=== PATIENT | male | born 1970 | race African-American/Black ===

== ENCOUNTER 2019-09-20 09:19 | Emergency (ER) | payer OTHER, SELFPAY ==
[2019-09-20 09:25] VITALS: BP 155/95; PULSE 89; RESP 16; TEMP 36.7; O2SAT 98
--- NOTE | 2019-09-20 09:45 | ED.ABDPAIN ---
HPI - Abdominal Pain General Chief Complaint: Abdominal Pain Stated Complaint: abd pain Time Seen by Provider: 09/20/19 09:24 Source: patient Mode of arrival: ambulatory Limitations: no limitations History of Present Illness HPI narrative: This patient is a 49 year old Male who presents for evaluation of left lower abdominal pain and constipation. PAtient states he has had issues for several month. He reports left lower abdominal pain constantly for several months and he reports today his pain is severe cramping. He also states he has having issues having bowel movements. He has been taking multiple doses of dulcolax and he is not have regular bowel movements. His last amy movement was last night. He denies nausea, vomiting, blood stools or fever. MD elicited complaint: abdominal pain Onset (ago): month(s) Pain Consistency: constant Related Data Home Medications Medication Instructions Recorded Confirmed Humalog U-100 Insulin 15 units ACHS 09/20/19 09/20/19 Allergies Allergy/AdvReac Type Severity Reaction Status Date / Time No Known Allergies Allergy Unverified 09/20/19 15:52 Review of Systems Review of Systems: All systems reviewed & are unremarkable except as noted in HPI and below Constitutional: Constitutional: Denies chills and Denies fever(s) Respiratory: Respiratory: Denies dyspnea Gastrointestinal: Gastrointestinal: Reports abdominal pain, Reports constipation, Denies nausea and Denies vomiting Genitourinary: Genitourinary: Denies hematuria, Denies oliguria, Denies dysuria and Denies urinary frequency PMFSH Past Medical History Medical History (Updated 09/20/19 @ 17:43 by Jayshree Terry MD) History of gastrostomy tube placement Surgical History Surgical History (Updated 09/20/19 @ 09:46 by Jayshree Terry MD) History of open reduction and internal fixation (ORIF) procedure Social History Social History (System 08/10/19 @ 09:38 by Daksha Park) Gender identity (if verbalized by the patient): Male Exam Narrative: Exam Narrative: GENERAL: Well-appearing, well-nourished, and in no acute distress. HEAD: Normocephalic, atraumatic EYES: PERRLA and EOMI, conjunctiva clear without discharge RESPIRATORY: No respiratory distress, Airway patent, Respirations non-labored, Clear to auscultation without rales, rhonchi or wheeze HEART: Regular rate and rhythm. No murmur heard. Normal peripheral pulses. ABDOMEN: Soft, nontender, distended, normal active bowel sounds. No masses. No rebound or guarding, No organomegaly. no fecal impaction EXTREMITIES: No edema, normal strength with full range of motion. SKIN: Warm, dry, normal color without rash NEURO: Alert and oriented x3. CN 2-12 grossly intact. No focal deficits. PSYCH: Normal mood and affect. Course Reevaluation(s) Reevaluation #1: This patient left AMA before evaluation was completed. Date: 09/20/19 Time: 11:30 Vital Signs Vital signs: Vital Signs Temperature 98.0 F 09/20/19 09:25 Pulse Rate 89 09/20/19 09:25 Respiratory Rate 16 09/20/19 09:25 Blood Pressure 155/95 H 09/20/19 09:25 Pulse Oximetry 98 09/20/19 09:25 Temperature 98.0 F 09/20/19 09:25 Pulse Rate 89 09/20/19 09:25 Respiratory Rate 16 09/20/19 09:25 Blood Pressure 155/95 H 09/20/19 09:25 Pulse Oximetry 98 09/20/19 09:25 MDM - Abdominal Pain Lab Data Attestation: I reviewed the patient's lab results. Result diagrams: 09/20/19 10:44 09/20/19 10:44 Labs: Lab Results 09/20/19 09/20/19 Range/Units 10:44 10:44 WBC 7.5 (4.5-10.0) K/mm3 RBC 4.64 (4.6-6.20) M/mm3 Hgb 14.1 (14.0-18.0) g/dL Hct 41.6 L (42.0-52.0) % MCV 89.7 (80-100) fl MCH 30.4 (26-34) pg MCHC 33.9 (32-36) g/dl RDW 13.7 (11.5-14.5) % Plt Count 153 (150-375) k/mm3 MPV 11.7 H (7.4-10.4) fl Immature Gran % (Auto) 0.3 (0-0.5) % Neut % (Auto) 49.6 (45.5-73.1)
--- NOTE | 2019-09-20 10:36 | PC.NURSE ---
Multiple attempts for IV per this RN and KATHLEEN Moreno. Pt extremely anxious with IV starts.
[2019-09-20 10:51] LABS: Basophils Absolute Auto 0.1 K/mm3 (0.0-0.1); Basophils Percent Auto 0.8 % (0.2-1.2); Eosinophils Absolute Auto 0.1 K/mm3 (0-0.3); Eosinophils Percent Auto 0.7 % (0-4.4); Hematocrit 41.6 % (42.0-52.0); Hemoglobin 14.1 g/dL (14.0-18.0); Immature Granulocyte Absolute 0.02 K/mm3 (0.00-0.031); Immature Granulocyte Percent A 0.3 % (0-0.5); Lymphocytes Percent Auto 39.9 % (18.3-44.2); Mean Corpuscular HGB Conc 33.9 g/dl (32-36); Mean Corpuscular Hemoglobin 30.4 pg (26-34); Mean Corpuscular Volume 89.7 fl (80-100); Mean Platelet Volume 11.7 fl (7.4-10.4); Monocytes Absolute Auto 0.7 K/mm3 (0.1-0.6); Monocytes Percent Auto 8.7 % (2.6-8.5); Neutrophils Absolute Auto 3.7 K/mm3 (1.3-6.7); Neutrophils Percent Auto 49.6 % (45.5-73.1); Platelet Count Result 153 k/mm3 (150-375); Red Blood Count 4.64 M/mm3 (4.6-6.20); Red Cell Distribution Width 13.7 % (11.5-14.5); White Blood Count 7.5 K/mm3 (4.5-10.0)
[2019-09-20 11:02] LABS: Alanine Aminotransferase 23 U/L (4-50); Albumin Level 4.7 g/dL (3.5-5.1); Alkaline Phosphatase 121 U/L (38-126); Aspartate Amino Transferase 33 U/L (17-59); Bilirubin,Total 0.4 mg/dL (0.2-1.3); Blood Urea Nitrogen 19 mg/dL (9-20); Carbon Dioxide 24 mmol/L (22-30); Chloride 100 mmol/L (98-107); Estimated CRCL calculation 98 ml/min; Estimated Glomerular Filt Rate > 60; Glucose 270 mg/dL (75-110); Lipase 77 U/L (23-300); Potassium 4.6 mmol/L (3.4-5.0); Sodium 133 mmol/L (137-145)
--- NOTE | 2019-09-20 11:17 | PC.NURSE ---
In to room to request urine sample, note that pt's gown is on bed and clothes gone. Pt appears to have eloped. CT also in department states they came for the patient and he wasn't there. Intake notified did not see the patient leave.
--- NOTE | 2019-09-20 11:21 | PC.NURSE ---
Call to patient's home phone number, number is disconnected. Call to cell phone listed in chart. Msg left to return call regarding if IV was removed prior to arrival. No IV noted to be in the trash.
--- NOTE | 2019-09-20 11:37 | PC.NURSE ---
Call to [place] [employer] at [phone]. Report they will attempt to make contact with patient and advise him to return to the department. radiology physician made aware.
--- NOTE | 2019-09-20 14:30 | PC.NURSE ---
Call to [place] [employer], reportedly they made contact with Mr. Rojo at [phone], and they were told that he would return to the ED to have it removed. Informed that he has not returned as of yet to have the IV removed nor has called to acknowledge receipt of message. BRIGETTE to call patient and have him return call to ED.
--- NOTE | 2019-09-20 14:33 | PC.NURSE ---
Pt returns call. When asked why the patient left, states well my stomach was hurting and I thought it would explode. I thought I would feel better in my bed. You people weren't doing anything for me anyway. All I want was a pain pill and an enema. Explained that blood was pending and that CT had come to take a picture and because he wasn't there we could not determine what was wrong with the patient. Pt states he fully intends to return to the ED because his pain is not better, but that he is waiting for a ride. Explained to patient that he needs to contact EMS or PD to remove the IV cath if he does not wish to be seen, or that he can return here if he wishes to be evaluated. Pt verb understanding and states will contact his friend and that he would return for evaluation because he's not feeling any better.
== END 2019-09-20 11:20 | disposition left against medical advice (07) ==
LOC: ANHED 09:46
PROVIDERS: Emergency Provider General Practice
DX: R10.32 Left lower quadrant pain (principal); Z79.4 Long term (current) use of insulin
CPT/HCPCS: 36415; 80053; 83690; 85025; 99283

== ENCOUNTER 2019-09-20 15:44 | Emergency (ER) | payer OTHER, SELFPAY ==
--- NOTE | ~2019-09-20 | CT_ITS ---
EXAMINATION: CT abdomen pelvis w con INDICATION: Lower abdominal pain TECHNIQUE: Computed tomographic images of the abdomen and pelvis were obtained after the administrati on of 100 cc of Omnipaque 350 intravenous contrast. The dose-length product (DLP) was 1019.17 mGy-cm. Automated exposure control and iterative reconstruction technique were employed. COMPARISON: 08/07/2016 FINDINGS: There is subpleural scarring and atelectasis of the left lower lobe. The heart size is norm al. The liver is diffusely low in attenuation when compared with the spleen, consistent with hepatic steatosis. The spleen, pancreas, gallbladder, and adrenal glands are normal. Cysts of the kidneys isis sure up to 1.7 cm on the left. There is calcified atherosclerosis of the aorta and many of the other arteries. No pathologically enlarged abdominal or pelvic lymph nodes are identified. There is no free intraperitoneal gas or evidence of bowel obstruction. The appendix is normal. There is a small fat-c ontaining umbilical hernia. There is mild lumbar spondylosis. IMPRESSION: 1. No CT correlate for the patient's symptoms. Reviewed, dictated and finalized at location A.
[2019-09-20 15:49] VITALS: BP 161/85; PULSE 90; RESP 16; TEMP 36.8; O2SAT 96
[2019-09-20 16:07] LABS: Glucose Point of Care 361 (65-105)
--- NOTE | 2019-09-20 17:38 | ED.ABDPAIN ---
HPI - Abdominal Pain General Chief Complaint: Abdominal Pain Stated Complaint: abd pain Time Seen by Provider: 09/20/19 16:17 Source: patient Mode of arrival: ambulatory History of Present Illness HPI narrative: This patient is a 49 year old male who presents with c/o left lower abdominal pain. He was evaluated here a few hours ago but he left before his evaluation was completed. He has unremarkable labs other than uncontrolled diabetes. He presents for 7 months of abdominal pain and constipation. He does not have vomiting, or fever. Related Data Home Medications Medication Instructions Recorded Confirmed Humalog U-100 Insulin 15 units ACHS 09/20/19 09/20/19 Allergies Allergy/AdvReac Type Severity Reaction Status Date / Time No Known Allergies Allergy Unverified 09/20/19 15:52 Review of Systems Review of Systems: All systems reviewed & are unremarkable except as noted in HPI and below Constitutional: Constitutional: Denies chills, Denies fever(s) and Denies weakness Cardiovascular: Cardiovascular: Denies chest pain Respiratory: Respiratory: Denies dyspnea Gastrointestinal: Gastrointestinal: Reports abdominal pain, Reports constipation, Denies diarrhea, Denies nausea and Denies vomiting PMFSH Past Medical History Medical History (Updated 09/20/19 @ 17:46 by Jayshree Terry MD) History of gastrostomy tube placement Surgical History Surgical History (Updated 09/20/19 @ 09:46 by Jayshree Terry MD) History of open reduction and internal fixation (ORIF) procedure Social History Social History (System 08/10/19 @ 09:38 by Daksha Park) Gender identity (if verbalized by the patient): Male Exam Narrative: Exam Narrative: GENERAL: Well-appearing, well-nourished, and in no acute distress. HEAD: Normocephalic, atraumatic EYES: PERRLA and EOMI, conjunctiva clear without discharge EARS: TM's clear bilaterally without erythema or dullness THROAT:Mucous membranes moist, Oropharynx normal without erythema, exudate, peritonsillar swelling or fluctuance NECK: Supple, without lymphadenopathy or mass RESPIRATORY: No respiratory distress, Airway patent, Respirations non-labored, Clear to auscultation without rales, rhonchi or wheeze HEART: Regular rate and rhythm. No murmur heard. Normal peripheral pulses. ABDOMEN: Soft, nontender,distended, normal active bowel sounds. No masses. No rebound or guarding, No organomegaly. EXTREMITIES: No edema, normal strength with full range of motion. SKIN: Warm, dry, normal color without rash NEURO: Alert and oriented x3. CN 2-12 grossly intact. No focal deficits. PSYCH: Normal mood and affect. Course Reevaluation(s) Reevaluation #1: Patient will be placed on daily miralax. He also states he should be on metformin but he has ran out due to PCP retiring. Date: 09/20/19 Time: 17:45 Vital Signs Vital signs: Vital Signs Temperature 98.2 F 09/20/19 15:49 Pulse Rate 90 09/20/19 15:49 Respiratory Rate 16 09/20/19 15:49 Blood Pressure 161/85 H 09/20/19 15:49 Pulse Oximetry 96 09/20/19 15:49 Temperature 98.2 F 09/20/19 15:49 Pulse Rate 90 09/20/19 15:49 Respiratory Rate 16 09/20/19 15:49 Blood Pressure 161/85 H 09/20/19 15:49 Pulse Oximetry 96 09/20/19 15:49 MDM - Abdominal Pain Lab Data Labs: Lab Results 09/20/19 Range/Units 16:03 POC Capillary Glucose 361 H (65-105) mg/dl Imaging Data Radiologist's impression: ITS Impressions Abdomen/Pelvis CT 09/20/19 17:18 IMPRESSION: 1. No CT correlate for the patient's symptoms. Discharge Plan Discharge Clinical Impression: Abdominal pain, acute, left lower quadrant, Hyperglycemia due to diabetes mellitus Patient Disposition: Home, Self-Care Condition: Stable Instructions: Antibiotic Form, Diabetes and Nutrition (ED) Additional Instructions: Please get established with a new primary care physician. Increase fiber i
== END 2019-09-20 18:15 | disposition home or self-care (01) ==
PROVIDERS: Emergency Provider General Practice
DX: R10.32 Left lower quadrant pain (principal); E11.65 Type 2 diabetes mellitus with hyperglycemia; Z79.4 Long term (current) use of insulin
CPT/HCPCS: 36415; 74177; 80053; 82948; 83690; 85025; 99284; Q9967

== ENCOUNTER 2020-02-09 09:08 | Outpatient (CLI) | payer OTHER, SELFPAY ==
--- NOTE | ~2020-02-09 | XR_ITS ---
EXAMINATION: XR enema water soluble DATE: 02/09/2020 10:23 INDICATION: Left lower quadrant pain TECHNIQUE: A transfer machine operator radiograph was obtained. A catheter was inserted into the patient's rectum. Contra st was infused by gravity. Fluoroscopic spot images and conventional radiographs were obtained. Fluor oscopy exposure time was 1.2 minutes. The DAP for this procedure was 113.46 Gycm2. 20 one images were obtained. COMPARISON: None. FINDINGS: No mass or stricture of the large bowel is identified. There are a few small colonic divert icula. There is no free intraperitoneal gas or evidence of bowel obstruction. IMPRESSION: 1. Small colonic diverticula, otherwise unremarkable single contrast enema. Reviewed, dictated and finalized at location A.
== END 2020-02-09 09:09 | disposition home or self-care (01) ==
PROVIDERS: Visit Provider Surgery
DX: R10.32 Left lower quadrant pain (principal); K57.90 Diverticulosis of intestine, part unspecified, without perforation or abscess without bleeding
CPT/HCPCS: 74270

== ENCOUNTER 2020-04-16 08:11 | Inpatient (IN) | payer OTHER, SELFPAY ==
[2020-04-16] VITALS (18 sets, daily range): BP systolic 53–134; BP diastolic 22–98; PULSE 87–137; RESP 22–33; TEMP 36.3–38.1; O2SAT 88–100
--- NOTE | ~2020-04-16 | US_ITS ---
EXAMINATION: US renal BI EXAM DATE: 04/16/2020 15:55 INDICATION: acute kidney injury. TECHNIQUE: Multiple grayscale and Doppler images of the kidneys were obtained (by a technologist who performed the scan) and subsequently reviewed. Comparison is made to prior examination from 08/12/2016 . FINDINGS: Right kidney: There is normal contour and echogenicity. It measures 10.9 x 5.0 x 4.9 centimeters. T here are no focal renal lesions identified. There is no hydronephrosis. Left kidney: There is normal contour and echogenicity. It measures 9.1 x 4.4 x 4.7 centimeters. The re are no focal renal lesions identified. There is no hydronephrosis. Bladder not visualized but reportedly patient on ventilator, may have Cunningham catheter within collapsed bladder. IMPRESSION: 1. Sonographically unremarkable kidneys. Reviewed, dictated and finalized at location A. CAL CODING MANAGER
--- NOTE | ~2020-04-16 | XR_ITS ---
EXAMINATION: XR abdomen NG/feed tube insert EXAM DATE: 04/16/2020 14:31 INDICATION: Orogastric tube placement. TECHNIQUE: Frontal projection(s) of the abdomen for interpretation. Comparison is made to prior exami nation from 08/21/2016. FINDINGS: Feeding tube tip and side-port project over gastric bubble, expected position. Nephrograms , dense material within the calyces. Correlate with any recent iodinated contrast administration. If administration was greater than 24 hours ago, may indicate poor renal function. Bilateral ill-defined airspace disease. Nonobstructive upper abdominal bowel gas pattern. IMPRESSION: 1. Feeding tube in position. 2. Nephrograms; correlate with previous contrast administration. Reviewed, dictated and finalized at location A. ARIAN ASSISTANT
--- NOTE | ~2020-04-16 | XR_ITS ---
EXAMINATION: XR chest 1V portable EXAM DATE: 04/16/2020 16:27 INDICATION: Respiratory failure. CODE BLUE. TECHNIQUE: Portable AP frontal chest x-ray was obtained. Comparison is made to prior examination from earlier same date. FINDINGS: Again there is arterial line extending up aortic arch with tip likely in the left ventricl e. Endotracheal tube has retracted couple of centimeters, now 5-6 cm above the alicia. There is a drea ogastric tube seen with tip collimated off the study, but below the left hemidiaphragm. Again there is extensive right-sided, moderate left-sided acute airspace disease likely edema/ARDS an d/or pneumonia. Small left pleural effusion. There is no pneumothorax suspected. The cardiomedias tinal silhouette is prominent but magnified on this AP technique. The bones and soft tissues are un remarkable. Airspace disease appears unchanged. IMPRESSION: 1. Line and tube(s) in position. 2. Extensive right-sided, moderate left-sided acute airspace disease unchanged. Reviewed, dictated and finalized at location A. SUPERVISOR FIREARMS IMPRESSION: 1. Line and tube(s) in position. 2. Extensive right-sided, moderate left-sided acute airspace disease unchanged .
--- NOTE | ~2020-04-16 | XR_ITS ---
EXAMINATION: XR chest 1V portable DATE: 04/16/2020 08:52 INDICATION: Shortness of breath. TECHNIQUE: A single frontal view of the chest was obtained. COMPARISON: Chest single view 05/12/2018, CT abdomen and pelvis 09/20/2019 FINDINGS: There are airspace opacities in all right lung zones and in left mid and lower lung zones. There is chronic blunting of left lateral costophrenic angle, consistent with scarring. No pleural ef fusion or pneumothorax. The heart size is normal. IMPRESSION: 1. Airspace opacities in right lung, consistent with pneumonia. 2. Airspace opacities in left mid and lower lung zones similar to prior exams, likely predominantly a telectasis and scarring. Reviewed, dictated and finalized at location A. ASSISTANT IMPRESSION: 1. Airspace opacities in right lung, consistent with pneumonia. 2. Airspace opacities in left mid and lower lung zones similar to prior exams, likely predominantly atelectasis and scarring.
--- NOTE | ~2020-04-16 | XR_ITS ---
EXAMINATION: XR chest ET placement EXAM DATE: 04/16/2020 14:31 INDICATION: Endotracheal tube placement. TECHNIQUE: Portable AP frontal chest x-ray was obtained. Comparison is made to prior examination from earlier same day. FINDINGS: Endotracheal tube tip is 2.5 centimeters above the alicia. Feeding tube in position. Anoth er catheter projects over aorta, ventricles. There is extensive right-sided, moderate left-sided acut e airspace disease, likely infection or edema. Mild cardiomegaly. There is pulmonary vascular congest ion. There is no pneumothorax suspected. Possible small pleural effusions. There are no osseous abnor malities identified. IMPRESSION: 1. Tubes in position. 2. Extensive right-sided, moderate left-sided infection and/or edema. Reviewed, dictated and finalized at location A. HEAD OPERATOR
--- NOTE | 2020-04-16 08:11 | ECG_ITS ---
Measurements Intervals [place] Rate: 117 P: 74 CO: 150 QRS: 193 QRSD: 113 T: 130 QT: 362 QTc: 507 Interpretive Statements SINUS TACHYCARDIA RIGHT AXIS DEVIATION INTRAVENTRICULAR CONDUCTION DELAY BORDERLINE R WAVE PROGRESSION, ANTERIOR LEADS BORDERLINE ST-T WAVE ABNORMALITY- LAT/HIGH LAT LEADS BASELINE ARTIFACT- I, II, III, AVF, V2-V4 ABNORMAL ECG Electronically Signed On 04-16-2020 11:17:30 [employer]IMMER by Musa Estrella D.O.
[2020-04-16 08:38] LABS: Basophils Absolute Auto 0.1 K/mm3 (0.0-0.1); Basophils Percent Auto 0.4 % (0.2-1.2); Hemoglobin 14.4 g/dL (14.0-18.0); Immature Granulocyte Absolute 0.09 K/mm3 (0.00-0.031); Immature Granulocyte Percent A 0.6 % (0-0.5); Lymphocytes Absolute Auto 1.49 K/mm3 (0.9-3.2); Lymphocytes Percent Auto 10.6 % (18.3-44.2); Mean Corpuscular Hemoglobin 30.6 pg (26-34); Mean Corpuscular Volume 95.5 fl (80-100); Mean Platelet Volume 11.2 fl (7.4-10.4); Monocytes Absolute Auto 0.8 K/mm3 (0.1-0.6); Monocytes Percent Auto 5.9 % (2.6-8.5); Neutrophils Absolute Auto 11.6 K/mm3 (1.3-6.7); Neutrophils Percent Auto 82.5 % (45.5-73.1); Platelet Count Result 150 k/mm3 (150-375); Red Blood Count 4.71 M/mm3 (4.6-6.20); Red Cell Distribution Width 14.7 % (11.5-14.5)
[2020-04-16 08:49] LABS: Alveolar/Arterial O2 Gradient 253.6 mmHg; Base Excess ABG -12.3 mEq/l (+/-2.0); Carboxyhemoglobin 0.9 % THb (0-2.0); Fractional Inspired Oxygen 100 %; HCO3 ABG 12.5 mEq/l (22.0-26.0); Methemoglobin ABG 0.3 %THb (0-1.5); Oxygen Content ABG 21.7 %vol (16.0-22.0); Oxygen Saturation ABG 99.8 % (95.0-100.0); Oxyhemoglobin 98.2 % THb (90.0-100.0); PO2 ABG 432.4 mmHg (80.0-100.0); PO2 FiO2 Ratio Arterial Blood 4.32 %; Reduced Hemoglobin 0.6 %THb (0-5.0); Total Hemoglobin 14.9 g/dL (12.0-18.0)
[2020-04-16 08:49] LABS: INR 1.2; Prothrombin Time 16.1 Seconds (11.1-14.7)
[2020-04-16 08:50] LABS: Partial Thromboplastin Time 24.7 SECONDS (22.3-36.8)
[2020-04-16 08:56] LABS: Albumin Level 4.4 g/dL (3.5-5.1); Alkaline Phosphatase 136 U/L (38-126); Anion Gap 20 mmol/L (8-16); Aspartate Amino Transferase 700 U/L (17-59); Bilirubin,Total 0.7 mg/dL (0.2-1.3); Blood Urea Nitrogen 18 mg/dL (9-20); Calcium 8.9 mg/dL (8.4-10.2); Carbon Dioxide 19 mmol/L (22-30); Chloride 97 mmol/L (98-107); Estimated CRCL calculation 49 ml/min; Estimated Glomerular Filt Rate 41; Glucose 618 mg/dL (75-110); Magnesium 2.2 mg/dL (1.6-2.3); Potassium 4.5 mmol/L (3.4-5.0); Sodium 136 mmol/L (137-145)
[2020-04-16 08:57] LABS: Modified Allen's Test Pass; Site Drawn RIGHT RADIAL; pH ABG 7.285 (7.350-7.450)
[2020-04-16 08:58] LABS: Device BIPAP; Expiratory Pressure 8 cmH2O; Inspiratory Pressure 18 cmH2O
[2020-04-16 08:58] LABS: Lactic Acid Reflex 9.2 mmol/L (0.7-2.1)
[2020-04-16] MEDS: DOBUTamine 250 MG/D5W 250 ML 250 MG/250 ML BAG 17.51 MG IV CONT (08:58)
[2020-04-16 09:01] LABS: Alanine Aminotransferase 163 U/L (4-50); NT Pro B Type Natriuretic Pept 3590 PG/ML (5-100)
--- NOTE | 2020-04-16 09:06 | ED.SOB ---
HPI - SOB/Dyspnea General Chief Complaint: Shortness of Breath/Dyspnea Stated Complaint: sob Time Seen by Provider: 04/16/20 08:21 Source: patient Mode of arrival: EMS Limitations: clinical condition History of Present Illness HPI Narrative: This patient is 50 year old male with history of DM, CAD, MS, CHF who presents for evaluation of midsternal chest pain. He states he developed shortness of breath and chest pain 7 hours ago. He has continued to have shortness of breath so he called EMS. Patient reports his chest pain has been continuous and he has pain to left upper back. He denies cough, fever, chills, diarrhea . EMS reports patient was 90% on room air with lungs sounds of rales. He was placed on CPAP in route to ER. He states he has not taken any medication today other than 4 baby aspirin and he took 6 nitros. Related Data Home Medications Medication Instructions Recorded Confirmed insulin NPH and regular human SUBCUT 04/16/20 [Humulin 70/30 U-100 KwikPen] insulin NPH and regular human SUBCUT 04/16/20 [Humulin 70/30 U-100 KwikPen] metformin mg 04/16/20 Allergies Allergy/AdvReac Type Severity Reaction Status Date / Time No Known Allergies Allergy Verified 04/16/20 08:24 Review of Systems Review of Systems: All systems reviewed & are unremarkable except as noted in HPI and below Constitutional: Constitutional: Denies chills and Denies fever(s) Cardiovascular: Cardiovascular: Reports chest pain and Denies radiating jaw, neck or arm pain Respiratory: Respiratory: Denies cough and Reports dyspnea Gastrointestinal: Gastrointestinal: Denies abdominal pain and Denies nausea PMFSH Past Medical History Medical History (Updated 04/16/20 @ 14:52 by Carl Ramirez MD) CAD (coronary artery disease) CHF (congestive heart failure) Diabetes mellitus DM2 (diabetes mellitus, type 2) Hyperlipidemia associated with type 2 diabetes mellitus Hypertension associated with diabetes Ischemic cardiomyopathy Peripheral neuropathy Surgical History Surgical History H/O cardiac catheterization Family History Family History (Updated 04/16/20 @ 13:46 by Lakesha Fernando NP) Mother Heart disease Diabetes mellitus Social History Social History (Updated 04/16/20 @ 13:52 by Lakesha Fernando NP) Social History: The patient tells me that he does not have a durable power of assistant city attorney makes his own decisions .the patient has 3 daughters. The patient tells me that he is employed but his the BiPAP on and could not understand what he told me he did for living. The patient is a smoker at least a pack a day. He denied any alcohol or marijuana or illicit drugs. Smoking status: Current every day smoker Substance use: never Gender identity (if verbalized by the patient): Male Exam Const: General: alert and ill appearing acutely Orientation/consciousness: patient oriented x3 HENMT: Head: normocephalic and atraumatic Face and sinus: face symmetric Throat: posterior oropharynx normal, tonsils normal and uvula midline Eyes: EOM: EOMs intact bilaterally Resp: Effort & Inspection: labored and tachypneic Auscultation: rhonchi Cardio: Rate: tachycardic Rhythm: regular rhythm Heart sounds: no murmurs GI: GI Palp: Yes Soft to palpation, No Tenderness to palpation present (GI) and No Guarding due to palpation present (GI) Auscultation: normal bowel sounds Neuro: General: patient oriented x3 and moves all extremities Extrem: General: no pedal edema Psych: Mental Status: mental status grossly normal Course Reevaluation(s) Reevaluation #1: Patient presented in respiratory distress. He has been found to be hypotensive. His history sounds like CHF. I discussed with patient that he is hypotensive and he needs to be started on medication pressors. I discussed need for urgency and CVL. He is refusing to have CVL performed. Will
[2020-04-16] MEDS: MORPHINE SULFATE (*CRX) 4 MG/ML INJ IV PUSH (09:10)
[2020-04-16] MEDS: FUROSEMIDE INJ 40 MG/4 ML VIAL IV PUSH (09:10)
[2020-04-16] MEDS: ONDANSETRON INJ 4 MG/2 ML VIAL IV PUSH (09:10)
[2020-04-16] MEDS: SODIUM CHLORIDE 0.9% IV 500 ML 999 ML IV CONT (09:20)
--- NOTE | 2020-04-16 09:33 | PC.NURSE ---
Roll Scale Man in room with pt to discuss POC.
--- NOTE | 2020-04-16 09:54 | PC.NURSE ---
Pt given 5,000 units Heparin bolus per [facility] EDP.
--- NOTE | 2020-04-16 10:04 | WPDMODSED ---
Moderate Sedation Note-Pt Data Patient Data Allergies Allergy/AdvReac Type Severity Reaction Status Date / Time No Known Allergies Allergy Verified 04/16/20 08:24 Current Medications: Active Medications Dobutamine HCl/Dextrose (Dobutamine 250 Mg/D5w 250 Ml) 250 mg in 250 mls @ 17.505 mls/hr IV CONT .[id number] STA Stop: 04/16/20 22:58 Last Admin: 04/16/20 08:58 Dose: 2.5 mcg/kg/min, 17.51 mls/hr Documented by: Sedation/Anesthesia: No previous sedation/anesthesia problems (including family history). [facility] Social History Social History Gender identity (if verbalized by the patient): Male Mod Sed Physical Exam Physical Exam Pre Procedural Exam: Variation: Airway (Severely short of breath, currently on BiPAP) Hours since solid foods: 0 Hours since liquid intake: 0 Internal Medicine - PN: Obj Da Vital Signs Vital Signs: Vital Signs - 24 hr 04/16/20 08:02 04/16/20 08:12 04/16/20 08:18 Temperature 36.3 C L Pulse Rate 117 H 115 H Respiratory Rate 33 H 29 H Blood Pressure 90/77 L Pulse Oximetry 96 100 04/16/20 08:21 04/16/20 08:22 04/16/20 08:58 Temperature Pulse Rate 113 H Respiratory Rate 29 H 30 H Blood Pressure 78/54 L Pulse Oximetry 96 100 100 04/16/20 09:21 Temperature Pulse Rate 117 H Respiratory Rate 30 H Blood Pressure 107/67 Pulse Oximetry 100 Intake/Output Intake/Output: Intake & Output 04/13/20 04/14/20 04/15/20 04/16/20 23:59 23:59 23:59 23:59 Intake Total 550 Balance 550 Meds/Results Medications: Active Medications Generic Name Dose Route Start Last Admin Trade Name Freq PRN Reason Stop Dose Admin Dobutamine HCl/Dextrose 250 mg in 250 mls @ 17.505 mls/hr 04/16/20 08:42 04/16/20 08:58 Dobutamine 250 Mg/D5w 250 Ml IV CONT 04/16/20 22:58 2.5 mcg/kg/min .[id number] STA 17.51 mls/hr Administration 2.5 MCG/KG/MIN Radiology Results: ITS Impressions Chest X-Ray 04/16/20 08:53 IMPRESSION: 1. Airspace opacities in right lung, consistent with pneumonia. 2. Airspace opacities in left mid and lower lung zones similar to prior exams, likely predominantly atelectasis and scarring. Labs CBC & Chem 7: 04/16/20 08:27 04/16/20 08:27 Labs: Laboratory Results - last 24 hr 04/16/20 04/16/20 04/16/20 08:27 08:27 08:27 WBC 14.0 H RBC 4.71 Hgb 14.4 Hct 45.0 MCV 95.5 MCH 30.6 MCHC 32.0 RDW 14.7 H Plt Count 150 MPV 11.2 H Immature Gran % (Auto) 0.6 H Neut % (Auto) 82.5 H Lymph % (Auto) 10.6 L [place] % (Auto) 5.9 Eos % (Auto) 0.0 Baso % (Auto) 0.4 Lymph # (Auto) 1.49 [place] # (Auto) 0.8 H Eos # (Auto) 0.0 Baso # (Auto) 0.1 Abs Immat Gran (auto) 0.09 H Absolute Neuts (auto) 11.6 H Absolute Nucleated RBC 0.0 Nucleated RBC % 0.0 PT 16.1 H INR 1.2 APTT 24.7 Puncture Site ABG pH ABG pCO2 ABG pO2 ABG PO2/FiO2 Ratio ABG HCO3 ABG O2 Saturation ABG O2 Content ABG Base Excess A-a Gradient Oxyhemoglobin Carboxyhemoglobin Methemoglobin Reduced Hemoglobin Total Hemoglobin O2 Delivery Device O2 Liters/Min FiO2 Expiratory Pressure Inspiratory Pressure Sodium Potassium Chloride Carbon Dioxide Anion Gap BUN Creatinine Estim Creat Clear Calc Estimated GFR Glucose Lactic Acid Calcium Magnesium Total Bilirubin AST ALT Alkaline Phosphatase Troponin I NT-Pro-B Natriuret Pep 3590 H Total Protein Albumin 04/16/20 04/16/20 04/16/20 08:27 08:27 08:43 WBC RBC Hgb Hct MCV MCH MCHC RDW Plt Count MPV Immature Gran % (Auto) Neut % (Auto) Lymph % (Auto) [place] % (Auto) Eos % (Auto) Baso % (Auto) Lymph # (Auto) [place] # (Auto) Eos # (Auto) Baso # (Auto) Abs Immat Gran (auto) Absolute Neuts (auto) Absolute N
--- NOTE | 2020-04-16 10:05 | PM.CNCAR ---
Assessment and Plan Assessment and plan (1) Acute non-ST elevation myocardial infarction (NSTEMI): Code(s): I21.4 - Non-ST elevation (NSTEMI) myocardial infarction Status: Acute Assessment and Plan: Patient has significant CAD as previously noted. Current EKG is concerning for LAD occlusion or near occlusion. He is in cardiogenic shock. 5000 units of heparin IV to be given. Aspirin has already been given. I did talk to Dr. Mireles and after talking to the patient, decision has been made to take the patient emergently to the cardiac catheterization lab. Cardiac catheterization to therefore be performed and further recommendation following angiogram. 2D echocardiogram Doppler will be ordered (2) Acute decompensated heart failure: Code(s): I50.9 - Heart failure, unspecified Status: Acute Assessment and Plan: Will likely need hemodynamic support mechanically as well as with medications. Currently on dobutamine and this will be continued for now. 40 mg IV Lasix x1 (3) Metabolic acidosis: Code(s): E87.2 - Acidosis Status: Acute (4) Ischemic cardiomyopathy: Code(s): I25.5 - Ischemic cardiomyopathy Status: Acute Assessment and Plan: Severe with last ejection fraction 30% (5) Hypertension associated with diabetes: Code(s): E11.59 - Type 2 diabetes mellitus with other circulatory complications; I10 - Essential (primary) hypertension Status: Acute (6) Hyperlipidemia associated with type 2 diabetes mellitus: Code(s): E11.69 - Type 2 diabetes mellitus with other specified complication; E78.5 - Hyperlipidemia, unspecified Status: Acute Assessment and Plan: Will start a statin at rosuvastatin 20 mg daily (7) Renal failure: Code(s): N19 - Unspecified kidney failure Status: Acute Assessment and Plan: Will Consult nephrology, Dr. Forte (8) Cardiogenic shock: Code(s): R57.0 - Cardiogenic shock Status: Acute Assessment and Plan: As above History of Present Illness History of Present Illness Consult date/time: 04/16/20 10:05 Requesting physician: Jayshree Terry MD Consult reason: chest pain and shortness of breath Reason For Visit: [email or web address],chf Narrative: Date of service 04/16/2020 Reason for consultation: Chest pain and shortness of breath Patient is a 50-year-old male with known coronary disease. His a known history of coronary disease including a occluded RCA in the mid section as well as occluded circumflex and significant disease within the LAD. Bypass was recommended versus high-risk PCI. Patient ultimately did not have anything performed as he states that he did not feel like he was strong enough. He also has not followed up with Cardiology. He presents to the hospital today with acute onset of severe chest pain and shortness of breath. Symptoms started at about 12:00 a.m. this morning. Symptoms of chest pain radiated to the left arm as well as severe shortness of breath. His also diaphoretic. Patient was hypotensive upon presentation. Dobutamine was initiated. He was put on BiPAP. Blood pressure was in 80s. He still is having chest pain at the time of my evaluation in the emergency department. He is still short of breath. He did take aspirin of all 6 nitroglycerines today. He denies any recent syncope, presyncope, paroxysmal nocturnal dyspnea, orthopnea, edema or palpitations. Review of Systems Review of Systems: All systems reviewed & are unremarkable except as noted in HPI and below Constitutional: Constitutional: Denies chills Eyes: Eyes: Denies blurry vision ENT: Reports Normal hearing present Cardiovascular: Cardiovascular: Reports chest pain Respiratory: Respiratory: Reports dyspnea Gastrointestinal: Gastrointestinal: Denies abdominal pain Genitourinary: Genitourinary: Denies dysuria Musculoskeletal: Musculoskeletal: Denies neck pain Integumentary/Breasts: S
--- NOTE | 2020-04-16 10:11 | WPDCARDPROC ---
Cardiac Cath Procedure Note Date of procedure:: 04/16/20 Performing physician:: Navi Mireles MD Procedure Procedure note:: CARDIAC CATHETERIZATION AND PERCUTANEOUS CORONARY INTERVENTION REPORT DATE OF PROCEDURE: 04/16/2020 INDICATION FOR PROCEDURE: Acute coronary syndrome- Anterior ST-elevation SD complicated by cardiogenic shock BRIEF CLINICAL HISTORY: 50-year-old male with CAD, ischemic cardiomyopathy, poorly controlled diabetes mellitus. Patient was brought to [facility] today with respiratory distress. His EKG showed sinus tachycardia, heart rate 117 beats per minute, subtle ST elevation in leads V3 and V4, ST depression in the inferolateral leads. Patient's troponins are elevated at 10.7, NT proBNP was elevated at 3590, and lactate was elevated at 9.2. Patient was in cardiogenic shock with systolic blood pressures in 70s to 80s. Cardiac catheterization lab was activated. Review of patient's previous coronary angiogram from 05/14/2018 showed 100% InStent restenosis proximal LCX, moderate disease in the mid LAD with reported IFR of 0.82, severe disease in the nondominant RCA. Patient apparently underwent unsuccessful attempted intervention on the 100% ISR of LCX by Dr Nolasco. Patient was offered surgical revascularization or high-risk PCI. Apparently, patient did not follow-up with the recommendations. Benefits and risks of the procedure were discussed with the patient in depth, and informed consent was obtained prior to the procedure. Risks of the procedure include but are not limited to vascular complications including groin hematoma, retroperitoneal bleed, vessel perforation; periprocedural SD, cardiac arrhythmias, stroke, contrast induced nephropathy, and . After discussing all the benefits, risks and alternatives, patient was willing to proceed with the procedure. PROCEDURES PERFORMED: 1. Emergent left heart catheterization- Selective left coronary angiogram; left ventriculogram and hemodynamic assessment 2. Percutaneous coronary intervention- a) insertion and placement of percutaneous left ventricular assist device -Impella CP for hemodynamic support in the setting of cardiogenic shock (CPT 43787); b) primary PCI -balloon angioplasty and stenting of mid LAD using a 2.75x26 mm orsiro sirolimus eluting stent 3. Selective right common femoral angiogram and deployment of Angio-Seal hemostatic device 4. Moderate sedation-CPT code 47690 MODERATE SEDATION: Morphine 1 mg IV. Start time 1031 , Stop [id number] ; Total uasx-ve-hcru time 65 minutes; Blaire Zuleta RN was trained observer for moderate sedation. ACCESS SITE: Right common femoral artery and left common femoral artery PROCEDURE NOTE: patient was emergently brought to catheterization lab and prepped and draped in a usual sterile manner. After local anesthesia with lidocaine, right common femoral artery access was taken with micropuncture needle followed by insertion of a 6 Northern Irish sheath. Selective left 5 Northern Irish catheter. Orthogonal views were taken. Right coronary artery is known to be non dominant or codominant have severe disease in the mid segment, and was not injected today. Next, a 5 Northern Irish pigtail catheter was advanced in the LV cavity and was flushed with normal saline. LV pressure measurement was performed. After this, left ventriculogram was performed. The catheter was flushed again, and gradient across the aortic valve was measured on the pullback of the catheter. FINDINGS: LEFT MAIN CORONARY: the left main coronary is a smaller caliber vessel with mild diffuse narrowing. The vessel bifurcates the LAD and left circumflex branches. LEFT ANTERIOR DESCENDING ARTERY: The LAD is a smaller caliber vessel with mild diffuse disease in the proximal segment; diffuse about 70% stenosis seen in the mid segment. The vessel becomes smaller caliber vessel distally and wraps LV apex. Diagonal branches are smaller caliber vessels. Select good blood mulu
[2020-04-16 11:35] LABS: Reflex Lactic Acid Yes or No Add Lactic
[2020-04-16 12:42] LABS: Alveolar/Arterial O2 Gradient 334.5 mmHg; Base Excess ABG -11.4 mEq/l (+/-2.0); Carboxyhemoglobin 0.3 % THb (0-2.0); Fractional Inspired Oxygen 100 %; HCO3 ABG 13.6 mEq/l (22.0-26.0); Methemoglobin ABG 0.4 %THb (0-1.5); Oxygen Saturation ABG 99.7 % (95.0-100.0); Oxyhemoglobin 98.5 % THb (90.0-100.0); PCO2 ABG 28.8 mmHg (35.0-45.0); PO2 ABG 349.7 mmHg (80.0-100.0); Reduced Hemoglobin 0.8 %THb (0-5.0); Total Hemoglobin 14.5 g/dL (12.0-18.0)
[2020-04-16 12:44] LABS: Device NON-INVASIVE VENT; Modified Allen's Test Pass; Site Drawn RIGHT RADIAL; pH ABG 7.291 (7.350-7.450)
[2020-04-16 12:48] LABS: Non-Invasive Expiratory Pressure 8 CMH2O; Non-Invasive Inspiratory Pressure 18 CMH2O; Non-Invasive Vent Rate 20 /MIN
[2020-04-16] MEDS: MORPHINE SULFATE (*CRX) 4 MG/ML INJ 2 MG IV PUSH (12:50)
--- NOTE | 2020-04-16 13:00 | PC.NURSE ---
This patient, Tyler Rojo Jr., was admitted to Intensive Care Unit-10. Patient/family oriented to hospital policies and general routines including ID bracelet, bed and alarms, visiting hours, pain management, procedures, bathroom and other care routines, personal items, smoking policy, room service/diet, and visiting hours. Information on how to activate the Rapid Response Team has been discussed. Patient/Family are encouraged to report perceived risks to care and to ask questions if they do not understand what they are told or what they should do.
[2020-04-16 13:03] LABS: Hematocrit 43.5 % (42.0-52.0); Mean Corpuscular HGB Conc 32.2 g/dl (32-36); Mean Corpuscular Hemoglobin 30.8 pg (26-34); Mean Corpuscular Volume 95.6 fl (80-100); Mean Platelet Volume 11.5 fl (7.4-10.4); Platelet Count Result 152 k/mm3 (150-375); Red Blood Count 4.55 M/mm3 (4.6-6.20); Red Cell Distribution Width 14.7 % (11.5-14.5); White Blood Count 18.7 K/mm3 (4.5-10.0)
[2020-04-16 13:18] LABS: Lactic Acid 8.2 mmol/L (0.7-2.1)
--- NOTE | 2020-04-16 13:28 | P.PCNBED_ITS ---
Procedures Central Line Placement Right Femoral: Central Line Date: 04/16/20 Central Line Time: 13:00 Discussed w/ the patient/family/POA,the placement of a central venous catheter, including its clinical necessity/indication & associated potential risks, benifits and alternatives.: Yes The patient/family/POA understand(s) and acknowledge(s) the need to proceed with central venous catheter insertion as an important element of the patient's clinical management.: Yes Time Out Performed: Yes Patient Position: supine Patient placed on monitor/pulse ox: Yes Provider Prep: mask, sterile gown, sterile gloves, Max. sterile barrier precautions, cap, hand hygiene with conventional soap/water or alcohol based hand rub and emergent ? sterile barriers not used Central line prep: 2% Chlorhexidine scrub Local anesthesia used: lidocaine 2% Amount of anesthesia used (ml): 5 Sterile US Technique with sterile gel/sterile probe covers: Yes Central line lumen inserted: triple Jordanian: 7 Length (cm): 16 Depth of Insertion (cm): 16 Post Procedure: sutured in place, good blood return, all ports aspirated, flushed, capped, transparent dressing and antimicrobial product Patient tolerated procedure: well Complications: none
[2020-04-16 13:32] LABS: Partial Thromboplastin Time > 200.0 SECONDS (22.3-36.8)
--- NOTE | 2020-04-16 13:32 | PM.IMHP ---
H&P: HPI History of Present Illness Date/Time: 04/16/20 13:32 Chief Complaint: Chest pain Narrative: Tyler Rojo Jr. is a 50 year old maleWho has a history of diabetes, coronary artery disease, IA, and congestive heart failure. The patient came to the emergency room to be evaluated for midsternal chest pain. He developed shortness of breath and chest pain that started 7 hours prior to come to the emergency room. He continued to have shortness of breath and therefore he called EMS. The patient has been continue with Ca and is reading aiding to his left upper back. He denied any fever chills or cough he has not had any sick contacts. The patient was 90% on room air he was placed on a CPAP in route. He had not taken any medication today other than 4 baby aspirin any took 6 nitros. Patient was hypotensive in the emergency room and was in respiratory distress. The ER provider discussed a central line placement in the emergency room but the patient refused. Dr. delacruz was consulted about the ongoing chest pain congestive heart failure hypotension and a troponin of 10. was at the bedside and decided to take the patient to the senior label specialist. The discuss intubating the patient again he refused to be intubated. The patient was taken to the senior label specialist for an NSTEMI. EKG was concerning for LAD occlusion or near occlusion. The patient was in cardiogenic shock. 5000 units of heparin was given. An aspirin was already taken by the patient. The patient was also placed on dobutamine. Patient has a known history of coronary artery disease including an occluded RCA in the mid section as well as occluded circumflex and significant disease within the LAD. A bypass was recommended versus a high-risk INFANTRY WEAPONS CREWMEMBER. The patient ultimately did not do anything about this. I stated that he did have the strength to go through with it. Patient's symptoms started about 12:00 a.m. this morning. Emergent left heart catheterization was performed he had a percutaneous coronary intervention. Insertion and placement of percutaneous left ventricular assist device Impella CP for hemodynamics support in the setting of cardiogenic shock. PCI balloon angioplasty and stenting of mid LAD selective right common femoral angio g and deployment of Angio-Seal hemostatic device. Moderate sedation. After long discussion with the patient he was then agreeable to place a femoral central line. Please see the cardiac catheterization report. The lens fabricating machine tender has been consulted has already seen the patient. The patient is currently on a BiPAP. The patient is being admitted into inpatient status in ICU on the date of service of 04/16/2020. Review of Systems Review of Systems: All systems reviewed & are unremarkable except as noted in HPI and below Constitutional: Constitutional: Reports as per HPI and Reports no additional constitutional complaints Eyes: Eyes: Reports as per HPI and Reports no additional eye complaints ENT: Reports system reviewed and no additional complaints, except as documented and Reports Normal hearing present Cardiovascular: Cardiovascular: Reports no additional cardiovascular complaints Respiratory: Respiratory: Reports no additional respiratory complaints and Reports no additional respiratory complaints Gastrointestinal: Gastrointestinal: Reports as per HPI and Reports no additional gastrointestinal complaints Musculoskeletal: Musculoskeletal: Reports no additional musculoskeletal complaints Integumentary/Breasts: Skin/Breast: Reports system reviewed and no additional complaints, except as docu and Reports as per HPI Neurologic: Reports system reviewed and no additional complaints, except as documented, Reports as per HPI and Reports Normal hearing present Psychiatric: Psychiatric: Reports no additional psychiatric complaints and Reports as per HPI Endocrine: Endocrine: Reports no additional endocrine complaints Hematologic/Lymphatic: Hematologic/Lymphatic
[2020-04-16] MEDS: PROPOFOL IV EMULSION 100 ML 3.5 MG IV CONT (14:00)
[2020-04-16] MEDS: FENTANYL 2,500MCG/NS250ML(*CRX 2,500 MCG/250 ML BAG 10 MCG IV CONT (14:00)
--- NOTE | 2020-04-16 14:32 | WPDCNINT ---
Assessment and Plan Assessment and plan (1) Cardiogenic shock: Code(s): R57.0 - Cardiogenic shock Status: Acute Assessment and Plan: Currently on Levophed and vasopressin. He is getting hemodynamics support with Impella as well. Care of Impella device as per cardiology service. Continue to monitor hemodynamics closely. Will need arterial line. Wean pressors if tolerated. (2) Acute non-ST elevation myocardial infarction (NSTEMI): Code(s): I21.4 - Non-ST elevation (NSTEMI) myocardial infarction Status: Acute Assessment and Plan: Currently on aspirin and Brilinta As per cardiology service. Will hold off statin for now because of significant deranged liver function as a result of shock hepatopathy. He is not on any metoprolol or JOSHUA inhibitor because of cardiogenic shock. (3) Metabolic acidosis: Code(s): E87.2 - Acidosis Status: Acute Assessment and Plan: Likely secondary to severe lactic acidosis because of cardiogenic shock. Continue to monitor lactic acid until it normalized. Continue to monitor hemodynamics closely. (4) Ischemic cardiomyopathy: Code(s): I25.5 - Ischemic cardiomyopathy Status: Acute Assessment and Plan: Echo has been ordered. If hemodynamics continue to be unstable then may add dobutamine. Ventriculography during cardiac catheterization showed ejection fraction of 10-15%. (5) DM2 (diabetes mellitus, type 2): Code(s): E11.9 - Type 2 diabetes mellitus without complications Status: Chronic Assessment and Plan: Insulin sliding scale for now. Continue fingerstick sugars every 4-6 are. Hold off NPH for now. (6) Renal failure: Code(s): N19 - Unspecified kidney failure Status: Acute Assessment and Plan: Likely secondary to hypertension. Continue to monitor renal parameters and electrolytes. Continue to monitor intake output record. Nephrology will be consulted if his renal failure worsened. (7) Pneumonia: Code(s): J18.9 - Pneumonia, unspecified organism Status: Acute Assessment and Plan: Airspace disease on the right side. Biliary material was seen around the airway at the time of intubation. He had an episode of vomiting while he was on BiPAP during cardiac catheterization. Will start him empirically on Zosyn and vancomycin. Send sputum culture. Blood culture has already been sent and will follow it. Deescalate antibiotics based on cultures. COVID swab has been sent. Continue to follow it. He will be on airborne and droplet precaution until he is ruled out. (8) Acute respiratory failure: Code(s): J96.00 - Acute respiratory failure, unspecified whether with hypoxia or hypercapnia Status: Acute Assessment and Plan: Continue mechanical ventilation with the current setting. Wean PEEP and FiO2 if tolerated. Low tidal volume strategies will be implying to prevent barotrauma. Monitor ABG and chest x-ray. Currently sedated with propofol and fentanyl. Maintain a RASS of -1. (9) Hepatitis: Code(s): K75.9 - Inflammatory liver disease, unspecified Status: Acute Assessment and Plan: Likely as a result of severe shock and hepatopathy associated with it. Continue to monitor LFTs. If it does not resolve then may get ultrasound of the right upper quadrant and check hepatitis panel. Additional Plan He has critically sick. He was alert oriented and was very difficult to convince for intubation and central line placement in the groin. He was moving his lower extremity continuously though he has been told again and again not to. He has a known history of medical noncompliance. DVT prophylaxis with subcu heparin GI prophylaxis with pantoprazole Code status full code Due to a high probability of clinically significant, life threatening deterioration, the patient required my highest level of prep
--- NOTE | 2020-04-16 14:32 | WPDPROCEDUR ---
Procedures Intubation Intubation Date: 04/16/20 Intubation Time: 13:44 A pre-procedural Time-Out was completed immediately before starting the procedure and confirmed: Patient Identification, Site, Procedure, Patient Position and the Availability of Requisite Equipment: Yes Sedative: etomidate Mg given: 20 Paralytic: rocuronium Mg given: 50 Laryngoscope: fiber optic video scope Assist device used: fiber optic device ET tube size: 7.5 Tube secured depth (cm): 26 Tube secured location: lips Tube placement confirmation: visualized tube passing through cords, equal breath sounds bilaterally and confirmation by capnometry Patient tolerated procedure: well Intubation complications: none
[2020-04-16] MEDS: VASOPRESSIN INJ 100 UNITS in DEXTROSE 5% 95 ML IV CONT (15:19)
[2020-04-16] MEDS: NOREPINEPHRINE 8 MG/D5W 250 ML 8 MG/250 ML BAG 30 MG (15:28)
--- NOTE | 2020-04-16 15:54 | PM.EVENT ---
Event Note Event Note Event Note: a code thania was called and i attempted to call his emergent contaact albin mcgraw [phone] without any answer. see code sheet
--- NOTE | 2020-04-16 15:56 | ECHO_ITS ---
Patient Info Name: Tyler Rojo Age: 50 years : 1970 Gender: Male Ht: 70 in Wt: 257 lbs BSA: 2.44 m2 HR: 1,158 bpm BP: 102 / 70 mmHg Heart Rhythm: Tachycardia Technical Quality: Good Exam Date: 04/16/2020 4:38 PM Exam Location: [facility] Pulmonary Patient Status: Inpatient Admit Date: 04/16/2020 Staff Ordering Physician: Carl Ramirez MD All Source Collection Manager: Ihsan Funk RDCS Attending Provider: Daniela Laughlin MD Exam Type: CA echo doppler color flow Study Info Indications I21.4 - Non-ST elevation (NSTEMI) myocardial infarction Complete two-dimensional, color flow and Doppler transthoracic echocardiogram is performed. Strain analysis performed. History/Risk Factors NSTEMI on Impella device; acute respiratory failure. Summary 1. Complete two-dimensional, color flow and Doppler transthoracic echocardiogram is performed. 2. Left ventricular systolic function is severely reduced, estimated at <15%. 3. The Impella catheter is visualized in appropriate position. 4. The anterior wall and anteroseptal segments are severely hypodynamic. The remainder of the LV is akinetic. 5. Left atrial chamber dimension is mildly enlarged. 6. There is trace mitral valve regurgitation. Left Ventricle Left ventricular chamber dimension is moderately enlarged. Left ventricular systolic function is severely reduced, estimated at <15%. The left ventricular diastolic function is indeterminate. The Impella catheter is visualized in appropriate position. The anterior wall and anteroseptal segments are severely hypodynamic. The remainder of the LV is akinetic. Right Ventricle Right ventricular chamber dimension is normal. Left Atria Left atrial chamber dimension is mildly enlarged. Right Atria Right atrial chamber dimension is normal. Aortic Valve The aortic valve is normal. Pulmonic Valve The pulmonic valve is not well visualized. Mitral Valve The mitral valve has normal leaflets. There is trace mitral valve regurgitation. Tricuspid Valve The tricuspid valve leaflets are not well visualized. Pericardium/Pleural The pericardium appears normal. Aorta The aortic root size at the sinus of Valsalva is normal. Left Ventricular Outflow Tract Name Value Normal LVOT Doppler LVOT Peak Gradient 1 mmHg LVOT Mean Gradient 1 mmHg LVOT VTI 5 cm LVOT VTI/AV VTI Ratio 0.7 Mitral Valve Name Value Normal MV Doppler MV Decel [place] 667 cm/s2 MV PHT 36 ms MV Area (PHT) 6.1 cm2 4.0-5.0 MV Diastolic Function MV E Peak Velocity 83 cm/s MV A Peak Velocity 45 cm/s MV E/A 1.8 MV
--- NOTE | 2020-04-16 16:21 | WPDPROCEDUR ---
Procedures Arterial Line Arterial Line Date: 04/16/20 Arterial Line Time: 16:17 Perfomed Emergently - Given emergent patient conditions, temporal constraints may have precluded informed consent: Yes Time Out Performed: Yes Patient Position: supine Computer Systems Software Architect Prep: sterile gown, sterile gloves, mask and hat Site: right and brachial Site Prep: chlorhexidine Skin Anesthesia: 1% lidocaine Technique used: guide wire technique Size (Gauge): 14 Length: 12 cm Closure/Dressing: suture, transparent dressing and hemostatic product Patient tolerated procedure: well Complications: none
[2020-04-16] MEDS: PANTOPRAZOLE SODIUM IV 40 MG VIAL IV PUSH ×2 (16:24→16:45)
--- NOTE | 2020-04-16 16:25 | P.CODEBLUE_ITS ---
Code Blue Note Code Blue Note Time Arrived at Code Blue: I was at the bedside putting a left brachial arterial line when he went into ventricular fibrillation. Chest compression was started immediately. Initial Rhythm on Arrival: Ventricular fibrillation Airway Management: Initiated bagging pt on arrival Chest Compressions: In process on arrival to bedside Cardiac Rhythm Post Code: I was at the bedside putting a left brachial arterial line for close monitoring of hemodynamics when he went into ventricular fibrillation. Time of onset was 3:44PM. Chest compression was started immediately. He was shocked 4 times with initial shock being 200 joule with the rest of shocks being 360 joules. He was given for epinephrine and to soda bicarb injection. ROSC was achieved at 3:54PM. Left brachial arterial line was placed. He is currently on Levophed vasopressin and epinephrine. There is concern for displacement of Impella and currently being evaluated with an echo at the bedside by the auto glass technician. Machine Operator Transplanter, Dr. Osei was present at the bedside helping us in his management. He is too unstable to put him on hypothermia protocol. Machine Operator Transplanter Dr. Osei spoke to the family in length and explained his clinical condition and prognosis. [facility] was called in for possible initiation of ECMO and he is currently being evaluated with discussion with the needle leader here. He has not been accepted yet.
--- NOTE | 2020-04-16 18:30 | PM.TDS ---
Transfer Discharge Sum: Prov Provider Date of admission: 04/16/20 09:52 Primary care physician: Dr. martines is on-call now Admitting clinician: Daniela Laughlin MD DS: Admitting Diagnosis Admitting Diagnosis Admitting Diagnosis: Non-STEMI DS: Discharge Diagnosis Discharge Diagnosis (1) Cardiogenic shock: Code(s): R57.0 - Cardiogenic shock Status: Acute Assessment and Plan: The patient was taken for cardiac catheterization lab please see the cardiac catheterization lab nodes. Please see admission note from earlier today. (2) Acute respiratory failure: Code(s): J96.00 - Acute respiratory failure, unspecified whether with hypoxia or hypercapnia Status: Acute Assessment and Plan: The patient was intubated and placed on a ventilator. (3) Acute non-ST elevation myocardial infarction (NSTEMI): Code(s): I21.4 - Non-ST elevation (NSTEMI) myocardial infarction Status: Acute Assessment and Plan: The patient was taken to the cardiac catheterization lab and has been on Impella. (4) Hypertension associated with diabetes: Code(s): E11.59 - Type 2 diabetes mellitus with other circulatory complications; I10 - Essential (primary) hypertension Status: Acute Assessment and Plan: Patient had been hypotensive and had been on vasopressors. (5) Hyperlipidemia associated with type 2 diabetes mellitus: Code(s): E11.69 - Type 2 diabetes mellitus with other specified complication; E78.5 - Hyperlipidemia, unspecified Status: Acute (6) Renal failure: Code(s): N19 - Unspecified kidney failure Status: Acute (7) DM2 (diabetes mellitus, type 2): Code(s): E11.9 - Type 2 diabetes mellitus without complications Status: Chronic Assessment and Plan: Accu-Cheks are being performed. (8) Peripheral neuropathy: Code(s): G62.9 - Polyneuropathy, unspecified Status: Chronic Transfer Discharge Sum: Med Medications Active and Home Medications: Home Medications insulin NPH and regular human [Humulin 70/30 U-100 KwikPen] SUBCUT 04/16/20 [History] insulin NPH and regular human [Humulin 70/30 U-100 KwikPen] SUBCUT 04/16/20 [History] metformin mg 04/16/20 [History] Active Medications Aspirin (Aspirin 81 Mg Chewable Tablet) 81 mg PO DAILY@0800 NALLELY Atorvastatin Calcium (Atorvastatin 40 Mg Tablet) 80 mg PO DAILY [facility] Dextrose (Dextrose 50% 25 Gm/50 Ml Syringe) 12.5 gm IV PUSH PRN PRN; Protocol PRN Reason: Hypoglycemia Glucagon (Glucagon For Inj 1 Mg Vial) 1 mg IM PRN PRN; Protocol PRN Reason: Hypoglycemia Glucose (Glucose Oral Gel 15 Gm Of Glucse In 37.5 Gm Tube) 15 gm PO PRN PRN; Protocol PRN Reason: Hypoglycemia Dobutamine HCl/Dextrose (Dobutamine 250 Mg/D5w 250 Ml) 250 mg in 250 mls @ 17.505 mls/hr IV CONT .[id number] STA Stop: 04/16/20 22:58 Last Admin: 04/16/20 08:58 Dose: 2.5 mcg/kg/min, 17.51 mls/hr Documented by: Sodium Chloride (Normal Saline Iv) 1,000 mls @ 125 mls/hr IV CONT .Q8H ONE Stop: 04/16/20 20:09 Heparin Sodium (Porcine) 12, (500 units/ Dextrose) 502.5 mls @ 2 mls/hr IV CONT .Q24H NALLELY; Protocol Sodium Chloride (Normal Saline Iv) 1,000 mls @ 0 mls/hr IV CONT .Q0M NALLELY; Protocol Bivalirudin 250 mg/ Dextrose 50 mls @ 40.845 mls/hr IV CONT .Q1H14M [facility]ALLE[facility] Dextrose (Dextrose 5% 1,000 Ml) 1,000 mls @ 100 mls/hr IVPB PRN PRN; Protocol PRN Reason: Hypoglycemia Fentanyl Citrate (Fentanyl 2,500 Mcg/Ns 250 Ml) 2,500 mcg in 250 mls @ 2.5 mls/hr IV CONT .Q72H [facility]; Protocol Last Admin: 04/16/20 14:00 Dose: 100 mcg/hr, 10 mls/hr Documented by: Propofol (Diprivan) 100 mls @ 3.501 mls/hr IV CONT .[id number] NALLELY; Protocol Last Admin: 04/16/20 14:00 Dose: 5 mcg/kg/min, 3.5 mls/hr Documented by: Vasopressin 100 units/ (Dextrose) 100 mls @ 1.2 mls/hr IV CONT .Q72H NALLELY; Protocol Last Admin: 04/16/20 15:19 Dose: 0.02 units/min, 1.2 mls/hr Documented by: Piperacillin/Tazobactam/Dextrose (Zosyn 3.375 Gm/D5w 50ml Pm) 3.37
--- NOTE | 2020-04-16 19:39 | PC.NURSE ---
Patient arrived to floor with slabbing machine operator staff at approximately 1230, at that time patient was awake, oriented times 3, denied chest pain, bipap in place. Vital signs pulse 110, respiratory rate 33. oxygen sat 98%, bp 128/113. Patient had angiomax infusing, per cardiology orders and to be discontinued upon initiation of impellla heparin protocol. Levophed infusing for blood pressure support. Impella rep at the bedside. Impella order set obtained. Central line placed by Lakesha Fernando NP at approximately 1330. Patient became increasing restless, short of breath, refusing bipap, and continually moving left leg, Impella insertion site in left groin. Patient was intubated at approx 1345. Code Blue occurred at 1544, compressions were started immediately, and ROSC was achieved at 1554. Impella rep informed of code blue. Echo was obtained per cardiology. Patient was subsequently accepted at [id number]. Report was called to Charge Nurse, KATHLEEN Claros. Patient was transported to [place] via helicopter.
[2020-04-17 07:20] LABS: Glucose Point of Care > 500 (65-105)
[2020-04-17 16:54] LABS: SARS-CoV-2 RNA PCR Negative
== END 2020-04-16 18:30 | disposition short-term general hospital (02) | DRG 161 ==
LOC: ANHED 10:01 → ANHICU 10:08
PROVIDERS: Internal Medicine Cardiovascular Disease; Internal Medicine Critical Care Medicine; Admitting Provider Family Medicine; Emergency Provider General Practice; Visit Provider Internal Medicine Cardiovascular Disease
PROC: 4A023N7 Measurement of Cardiac Sampling and Pressure, Left Heart, Percutaneous Approach (ICD-10-PCS; CPT 93452; principal; 2020-04-16 09:45)
PROC: 027034Z Dilation of Coronary Artery, One Artery with Drug-eluting Intraluminal Device, Percutaneous Approach (ICD-10-PCS; 2020-04-16 09:45)
PROC: 027034Z Dilation of Coronary Artery, One Artery with Drug-eluting Intraluminal Device, Percutaneous Approach (ICD-10-PCS; CPT 33979; 2020-04-16 09:45)
PROC: 027034Z Dilation of Coronary Artery, One Artery with Drug-eluting Intraluminal Device, Percutaneous Approach (ICD-10-PCS; 2020-04-16 09:45)
DX: I21.09 ST elevation (STEMI) myocardial infarction involving other coronary artery of anterior wall (principal); E11.8 Type 2 diabetes mellitus with unspecified complications; I25.2 Old myocardial infarction; I25.10 Atherosclerotic heart disease of native coronary artery without angina pectoris; I50.9 Heart failure, unspecified; I11.0 Hypertensive heart disease with heart failure; F17.210 Nicotine dependence, cigarettes, uncomplicated; E87.2 Acidosis; I25.5 Ischemic cardiomyopathy; R57.0 Cardiogenic shock; G62.9 Polyneuropathy, unspecified; E11.69 Type 2 diabetes mellitus with other specified complication; E78.5 Hyperlipidemia, unspecified; J18.9 Pneumonia, unspecified organism; I49.01 Ventricular fibrillation; Z20.828 Contact with and (suspected) exposure to other viral communicable diseases
CPT/HCPCS: 33990; 36415; 36600; 71045; 76775; 80053; 82375; 82805; 83050; 83605; 83735; 83880; 84484; 85025; 85027; 85610; 85730; 87040; 87635; 92950; 93005; 93306; 93458; 94002; 96365; 96375; 99291; A9270; C1725; C1751; C1760; C1769; C1874; C1887; C1894; C9113; C9606; C9803; G0269; J0171; J0583; J0696; J1250; J1265; J1644; J1940; J2270; J2405; J2704; J3010; J3370; J7040; J7050; J7060; L1830; U0003